=== PATIENT | male | born 1940 | race Caucasian/White ===

== ENCOUNTER 2017-02-24 07:37 | Emergency (ER) | payer MEDICARE ==
[~2017-02-24] VITALS: Ht 182.9 cm; Wt 90.7 kg
--- NOTE | 2017-02-24 07:40 | NUR ---
AAOX3, CAME TO ER C/O NOSE BLEED SINCE 399. TOOK ASA x 3 PILLS IN 24 HRS. RR IS EVEN AND UNLABORED WITH NAD NOTED. SKIN IS WARM AND DRY. AWAITING MD FOR EVAL.
--- NOTE | 2017-02-24 07:50 | NUR ---
DR NOVOA AT BS FOR EVAL.
--- NOTE | 2017-02-24 08:37 | NUR ---
DR NOVOA AT BS FOR AN UPDATE AND RE-EVAL.
--- NOTE | 2017-02-24 08:46 | NUR ---
Patient discharged to home in stable condition. Written and verbal after care instructions given. Patient verbalizes understanding of instruction.
[2017-02-24 08:47] VITALS: BP 154/97
== END 2017-02-24 08:48 | disposition home or self-care (01) ==
LOC: ER 07:39
DX: R04.0 Epistaxis (principal); I10 Essential (primary) hypertension; M19.90 Unspecified osteoarthritis, unspecified site; Z88.1 Allergy status to other antibiotic agents; Z79.82 Long term (current) use of aspirin
CPT/HCPCS: 99283; A4606; Z7610

== ENCOUNTER 2017-02-25 07:55 | Emergency (ER) | payer MEDICARE ==
[~2017-02-25] VITALS: Ht 182.9 cm; Wt 90.7 kg
--- NOTE | 2017-02-25 08:00 | NUR ---
PT came in for spontaneous epistaxis since 0600 this morning, worse than yesterday. Seen by MD for eval. Vss. Safety and comfort measures provided. Will monitor.
[2017-02-25] MEDS ORDERED: PHENYLEPHRINE 0.5% NASAL SPRAY 15 ML BOTTLE NS ONE (08:08)
[2017-02-25] MEDS ORDERED: PHENYLEPHRINE HCL NASAL SPRAY 15 ML BOTTLE NS ONE ×2 (08:09→08:30)
--- NOTE | 2017-02-25 09:30 | NUR ---
Patient discharged to home in stable condition. Written and verbal after care instructions given. Patient verbalizes understanding of instruction.
[2017-02-25 09:48] VITALS: BP 132/95
== END 2017-02-25 09:48 | disposition home or self-care (01) ==
LOC: ER 07:57
DX: R04.0 Epistaxis (principal); T78.8XXA Other adverse effects, not elsewhere classified, initial encounter; M19.90 Unspecified osteoarthritis, unspecified site; I10 Essential (primary) hypertension; Z88.1 Allergy status to other antibiotic agents; Z98.890 Other specified postprocedural states
CPT/HCPCS: 30901; 99284; A4606; Z7610